=== PATIENT | female | born 1980 | race Caucasian/White ===

== ENCOUNTER 2018-03-19 07:00 | Inpatient (IN) | payer BC ==
[2018-03-19] VITALS (29 sets, daily range): BP systolic 96–143; BP diastolic 52–90
[~2018-03-19] VITALS: Ht 172.7 cm; Wt 71.6 kg
[~2018-03-19 07:00] MED LIST: FLAGYL500 MG PO; IBUPROFEN600 MG PO; NORCO 5/3251 TABLET PO; PRENATAL LOW I1 EACH PO
[2018-03-19] MEDS ORDERED: ASPIR 8181 M1 PO (07:24)
[2018-03-19] MEDS ORDERED: SLOW RELEASE I142 M1 PO (07:26)
[2018-03-19 09:26] LABS: BASOPHIL (%) 0.3 % (0-1); EOSINOPHIL (%) 0.3 % (0-5); HEMATOCRIT 32.1 % (36.0-46.0); HEMOGLOBIN 10.1 G/DL (11.9-15.5); IMMATURE GRANULOCYTE (%) 0.4 % (0.0-0.7); LYMPHOCYTE (%) 20.6 % (15-42); LYMPHOCYTE COUNT 1.5 K/uL (1.0-2.8); MCHC 31.5 G/DL (30.0-36.0); MCV 82.7 FL (83-99); MONOCYTE (%) 6.5 % (3-12); MONOCYTE COUNT 0.5 K/uL (0-0.8); NEUTROPHIL (%) 71.9 % (45-76); NEUTROPHIL COUNT 5.1 K/uL (1.8-6.4); PLATELET COUNT 142 K/uL (156-360); RBC DIS.WIDTH-CV 16.9 % (11.8-14.6); RBC DIS.WIDTH-SD 49.4 % (39-53); RED BLOOD COUNT 3.88 M/uL (3.80-5.20)
[2018-03-19 10:13] LABS: AMPHETAMINE NEGATIVE (500 ng/mL); BARBITURATES NEGATIVE (200 ng/mL); BENZODIAZEPINES NEGATIVE (150 ng/mL); BUPRENORPHINE NEGATIVE (10 ng/mL); COCAINE NEGATIVE (150 ng/mL); METHADONE NEGATIVE (200 ng/mL); METHAMPHETAMINE NEGATIVE (500 ng/mL); OPIATES (MORPHINE) NEGATIVE (100 ng/mL); OXYCODONE NEGATIVE (100 ng/mL); PHENCYCLIDINE NEGATIVE (25 ng/mL); PROPOXYPHENE NEGATIVE (300 ng/mL); THC CANNABINOIDS NEGATIVE (50 ng/mL); TRICYCLIC ANTIDEPRESSANTS NEGATIVE (300 ng/mL)
[2018-03-20] VITALS (11 sets, daily range): BP systolic 101–138; BP diastolic 58–83
[2018-03-20] MEDS ORDERED: IBUPROFEN800 MG PO (05:40)
[2018-03-21 06:57] VITALS: BP 115/76
== END 2018-03-21 13:30 | disposition home or self-care (01) | DRG 775 ==
LOC: LDRP-OP → 2WEST 07:01
PROVIDERS: Advanced Practice Midwife
DX: O70.0 First degree perineal laceration during delivery (principal); O48.0 Post-term pregnancy; O99.02 Anemia complicating childbirth; D50.9 Iron deficiency anemia, unspecified; O99.284 Endocrine, nutritional and metabolic diseases complicating childbirth; E72.12 Methylenetetrahydrofolate reductase deficiency; Z3A.41 41 weeks gestation of pregnancy; Z37.0 Single live birth
CPT/HCPCS: 85025; C1755; G0378; J3010; J7120